=== PATIENT | female | born 1950 | race Caucasian/White ===

== ENCOUNTER 2017-05-16 07:01 | Inpatient (IN) | payer MEDICARE ==
[2017-05-16] VITALS (18 sets, daily range): BP systolic 140–238; BP diastolic 70–113
[~2017-05-16] VITALS: Ht 165.1 cm; Wt 41.8 kg
[~2017-05-16 07:01] MED LIST: LUMIGAN 2.5 ML2.5 ML OPH; METOPROLOL SR50 MG PO; MOTRIN800 MG PO
[2017-05-16] MEDS ORDERED: LATANOPROST2.5 ML OP (07:26)
[2017-05-16] MEDS ORDERED: METOPROLOL TART50 M1 PO (07:26)
[2017-05-16] MEDS ORDERED: IBU-200200 MG PO (07:27)
[2017-05-16 07:41] LABS: BASO # 0.1 10*3/uL (0.0-0.1); BASO % 0.8 % (0.0-1.0); EOS # 0.2 10*3/uL (0.0-0.4); EOS % 2.5 % (1.0-4.0); HEMATOCRIT 49.1 % (37.0-47.0); IG # 0.1 10*3/uL (0.0-0.1); LYMPH # 1.5 10*3/uL (1.3-4.4); LYMPH % 15.7 % (27.0-41.0); MEAN CELL VOLUME 96.5 fl (81.0-99.0); MEAN CORPUSCULAR HGB 33.4 pg (27.0-31.0); MEAN CORPUSCULAR HGB CONC 34.6 g/dl (33.0-37.0); MEAN PLATELET VOLUME 9.6 fl (9.6-12.3); MONO % 10.8 % (3.0-9.0); NEUT # 6.5 10*3/uL (2.3-7.9); NEUT % 69.7 % (47.0-73.0); PLATELET COUNT AUTOMATED 278 10*3/uL (130-400); RED BLOOD COUNT 5.09 10*6/uL (4.10-5.10); RED CELL DISTRI WIDTH 13.5 % (0-14.5); WHITE BLOOD COUNT 9.3 10*3/uL (4.8-10.8)
[2017-05-16 07:50] LABS: PROTHROMBIN TIME 10.9 SECONDS (9.0-12.4)
[2017-05-16 08:03] LABS: ALBUMIN 3.8 gm/dl (3.1-4.5); ALKALINE PHOSPHATASE 100 U/L (45-117); BILIRUBIN, TOTAL 0.4 mg/dl (0.2-1.0); BUN 4 mg/dl (7-24); CARBON DIOXIDE 28 mmol/L (21-32); CHLORIDE 97 mmol/L (98-107); CKMB 1.3 ng/ml (0.5-3.6); CPK 79 U/L (26-192); EST GLOM FILT AFRICAN AMERICAN > 60 ml/min; GLUCOSE 99 mg/dL (65-99); POTASSIUM 4.1 mmol/L (3.5-5.1); SGOT/AST 31 IU/L (3-35); SGPT/ALT 19 U/L (12-78); SODIUM 135 mmol/L (136-145); TOTAL PROTEIN 7.5 gm/dL (6.4-8.2)
[2017-05-16 08:06] LABS: C-REACTIVE PROTEIN < 0.29 MG/DL (0-0.3); TROPONIN I < 0.015 ng/ml (<0.045)
[2017-05-17] VITALS (7 sets, daily range): BP systolic 159–175; BP diastolic 63–92
[2017-05-17 05:50] LABS: BUN 8 mg/dl (7-24); CARBON DIOXIDE 28 mmol/L (21-32); CHLORIDE 100 mmol/L (98-107); CHOLESTEROL 164 mg/dL (<200); EST GLOM FILT AFRICAN AMERICAN > 60 ml/min; FREE T4 0.92 ng/dl (0.76-1.46); GLUCOSE 99 mg/dL (65-99); HDL CHOLESTEROL 94 mg/dl (40-60); LDL CHOLESTEROL 54 mg/dL (9-159); POTASSIUM 3.8 mmol/L (3.5-5.1); SODIUM 135 mmol/L (136-145); TRIGLYCERIDES 81 mg/dl (<150); VLDL CHOLESTEROL 16 mg/dL (6-40)
[2017-05-17 06:22] LABS: BASO # 0.1 10*3/uL (0.0-0.1); BASO % 0.7 % (0.0-1.0); EOS # 0.3 10*3/uL (0.0-0.4); EOS % 2.9 % (1.0-4.0); HEMATOCRIT 47.8 % (37.0-47.0); HEMOGLOBIN 16.2 g/dl (12.0-16.0); LYMPH # 1.5 10*3/uL (1.3-4.4); LYMPH % 16.4 % (27.0-41.0); MEAN CELL VOLUME 96.8 fl (81.0-99.0); MEAN CORPUSCULAR HGB 32.8 pg (27.0-31.0); MEAN CORPUSCULAR HGB CONC 33.9 g/dl (33.0-37.0); MEAN PLATELET VOLUME 10.4 fl (9.6-12.3); MONO # 1.3 10*3/uL (0.1-1.0); MONO % 14.1 % (3.0-9.0); NEUT # 5.8 10*3/uL (2.3-7.9); NEUT % 65.5 % (47.0-73.0); PLATELET COUNT AUTOMATED 261 10*3/uL (130-400); RED BLOOD COUNT 4.94 10*6/uL (4.10-5.10); RED CELL DISTRI WIDTH 13.6 % (0-14.5); WHITE BLOOD COUNT 8.9 10*3/uL (4.8-10.8)
[2017-05-17 06:23] LABS: HEMOGLOBIN A1c 5.5 % (4.8-5.6)
[2017-05-17 07:32] LABS: VITAMIN D, 25-HYDROXY 49.8 ng/mL (30-100)
[2017-05-17] MEDS ORDERED: LISINOPRIL10 M1 PO (13:35)
== END 2017-05-17 16:36 | disposition home or self-care (01) | DRG 305 ==
LOC: ED 07:01 → 4E 09:46 → EDHOLD 09:46 → ICCU 09:46 → 4E 05-17 10:33
PROVIDERS: Emergency Medicine; Student in an Organized Health Care Education/Training Program
DX: I16.1 Hypertensive emergency (principal); D75.1 Secondary polycythemia; Z68.1 Body mass index [BMI] 19.9 or less, adult; H53.2 Diplopia; R63.6 Underweight; I10 Essential (primary) hypertension; H40.9 Unspecified glaucoma; F17.210 Nicotine dependence, cigarettes, uncomplicated; Z88.0 Allergy status to penicillin; Z82.5 Family history of asthma and other chronic lower respiratory diseases; Z82.49 Family history of ischemic heart disease and other diseases of the circulatory system; Z90.710 Acquired absence of both cervix and uterus; Z79.1 Long term (current) use of non-steroidal anti-inflammatories (NSAID); Z79.899 Other long term (current) drug therapy; Z71.6 Tobacco abuse counseling

== ENCOUNTER → 2018-05-02 | Day surgery (SDC) | payer MEDICARE ==
[~2018-05-02] VITALS: Ht 165.1 cm; Wt 44.5 kg
[~2018-05-02] MED LIST changes: +COZAAR25 M1 PO; +IBU-200200 MG PO; +LATANOPROST2.5 ML OP; +LISINOPRIL10 M1 PO; +METOPROLOL TART50 M1 PO; +NORVASC5 MG PO
--- NOTE | ~2018-05-02 | O ---
[place], [place] OPERATIVE NOTE [facility]: [id number] UNIT #: [id number] ROOM: DOCTOR: EDMAR LYNCH MD BIRTHDATE: [birth year] DOS: 05/02/2018 PREOPERATIVE DIAGNOSIS: Cataract, right eye. POSTOPERATIVE DIAGNOSIS: Cataract, right eye. OPERATION: Extracapsular cataract extraction by phacoemulsification with posterior chamber intraocular lens implantation, right eye. ANESTHESIA: Monitored standby. OPERATIVE FINDINGS AND PROCEDURE: 2% Xylocaine topical anesthetic gel was applied to the eye in the preop area. The patient was taken to the operating room and prepped and draped in the standard fashion for sterile intraocular surgery. A time out procedure was performed verifying correct patient, correct site and corrects lens with Luiz Lynch M.D. The operating microscope was swung into position and the lid speculum was inserted. Using a Jonna paracentesis blade, a paracentesis was made through clear cornea. Viscoelastic was used to fill the anterior chamber. Using a metal keratome a 2.4 mm self-sealing clear corneal cataract incision was made temporally at the limbus. Using a pre-bent 25 gauge cystotome needle, a standard continuous curvilinear capsulorrhexis was performed. The anterior capsule was removed with forceps. The lens nucleus was hydrodissected and phacoemulsified in the posterior chamber. Cortical material was removed with the irrigation aspiration hand piece and the posterior capsule was then polished with a curet under irrigation. The posterior chamber and capsular bag were filled with viscoelastic. A posterior chamber intraocular lens manufactured by: [employer], Model #[id number], and 21.5 diopters in strength were then inserted into the posterior chamber and within the capsular bag using the lens cartridge and injector system. Viscoelastic was removed using the irrigation aspiration handpiece. The anterior chamber was filled with balanced salt solution through the paracentesis. Both the paracentesis site and cataract incisions were hydrated with BSS and verified to be water-tight and self-sealing. The incision checked to be water-tight using a Weck-Christina sponge. The integrity of the cataract wound and ocular tension were checked. Lid speculum and drapes were removed. The patient was transferred from the operating room to the recovery room in satisfactory condition. [place], [place] OPERATIVE NOTE NAME: YON POLLARD UNIT #: [id number] ROOM: DOCTOR: EDMAR LYNCH MD BIRTHDATE: [birth year] EDMAR LYNCH MD CM:OPRECORD:OPERATIVE NOTE [id number] EDMAR LYNCH MD 05/02/18 1441 interface
[2018-05-02 12:30] VITALS: BP 132/71
[2018-05-02 13:37] VITALS: BP 141/73
[2018-05-02 13:52] VITALS: BP 119/78
[2018-05-02 14:07] VITALS: BP 143/79
== END | disposition home or self-care (01) ==
LOC: SDC 04-27 14:00
DX: H25.811 Combined forms of age-related cataract, right eye (principal); I10 Essential (primary) hypertension; F17.210 Nicotine dependence, cigarettes, uncomplicated; Z88.8 Allergy status to other drugs, medicaments and biological substances; Z79.899 Other long term (current) drug therapy; Z90.710 Acquired absence of both cervix and uterus; Z88.0 Allergy status to penicillin

== ENCOUNTER → 2019-10-11 | Outpatient (CLI) | payer MEDICARE | END | disposition home or self-care (01) | LOC: US 07:28 | DX: R10.84 Generalized abdominal pain (principal); R10.2 Pelvic and perineal pain ==

== ENCOUNTER → 2021-02-24 | Day surgery (SDC) | payer MEDICARE, OTHER ==
[~2021-02-24] VITALS: Ht 165.1 cm; Wt 45.4 kg
[2021-02-24 09:47] VITALS: BP 162/76
[2021-02-24 11:00] VITALS: BP 155/73
[2021-02-24 11:13] VITALS: BP 159/76
[2021-02-24 11:30] VITALS: BP 161/70
== END ==
LOC: SDC 02-19 14:00
PROVIDERS: ATTEND Ophthalmology
DX: H25.12 Age-related nuclear cataract, left eye (principal); I10 Essential (primary) hypertension; J45.909 Unspecified asthma, uncomplicated; F17.210 Nicotine dependence, cigarettes, uncomplicated; Z88.0 Allergy status to penicillin

== ENCOUNTER 2022-01-19 12:12 | Emergency (ER) | payer MEDICARE, OTHER ==
[~2022-01-19] VITALS: Ht 165.1 cm; Wt 38.6 kg
[2022-01-19 12:58] LABS: HEMATOCRIT 53.7 % (37.0-47.0); MEAN CELL VOLUME 95.6 fl (81.0-99.0); MEAN CORPUSCULAR HGB 33.3 pg (27.0-31.0); MEAN CORPUSCULAR HGB CONC 34.8 g/dl (33.0-37.0); MEAN PLATELET VOLUME 8.9 fl (9.6-12.3); PLATELET COUNT AUTOMATED 296 10*3/uL (130-400); RED BLOOD COUNT 5.62 10*6/uL (4.10-5.10); RED CELL DISTRI WIDTH 13.2 % (0-14.5); WHITE BLOOD COUNT 11.8 10*3/uL (4.8-10.8)
[2022-01-19 13:01] LABS: MANUAL DIFF REFLEX YES
[2022-01-19 13:10] LABS: ACT PARTIAL THROMBO TIME 28.2 SECONDS (20.0-32.1)
[2022-01-19 13:15] LABS: ALKALINE PHOSPHATASE 141 U/L (45-117); BUN 3 mg/dl (7-24); CHLORIDE 92 mmol/L (98-107); CREATININE 0.66 mg/dL (0.55-1.02); SGOT/AST 21 IU/L (3-35); SGPT/ALT 24 U/L (12-78); SODIUM 129 mmol/L (136-145); TOTAL PROTEIN 8.5 gm/dL (6.4-8.2)
[2022-01-19 13:18] LABS: ATYPICAL LYMPHS 1 % (0-0); BASOPHILS 2 % (0-1); TOTAL CELLS COUNTED 100 #CELLS
[2022-01-19 13:19] LABS: PLATELET SUFFICIENCY NORMAL (NORMAL); POLYCHROMASIA SLIGHT
[2022-01-19] MEDS ORDERED: VITAMIN D325 MCG PO (13:56)
[2022-01-19] MEDS ORDERED: CALCIUM CARBON600 M4 PO (13:56)
[2022-01-19] MEDS ORDERED: ALENDRONATE SOD70 M1 PO (13:56)
== END 2022-01-19 21:04 | disposition short-term general hospital (02) ==
LOC: ED 12:12
PROVIDERS: Emergency Medicine
DX: I70.201 Unspecified atherosclerosis of native arteries of extremities, right leg (principal); Z88.0 Allergy status to penicillin; Z79.899 Other long term (current) drug therapy; Z90.710 Acquired absence of both cervix and uterus; Z87.891 Personal history of nicotine dependence

== ENCOUNTER → 2022-07-28 | Outpatient (CLI) | payer MEDICARE, OTHER ==
[~2022-07-28] MED LIST changes: +ALENDRONATE SOD70 M1 PO; +CALCIUM CARBON600 M4 PO; +VITAMIN D325 MCG PO
== END | disposition home or self-care (01) ==
LOC: RESCLI 00:07
PROVIDERS: ATTEND Family Medicine
DX: J44.9 Chronic obstructive pulmonary disease, unspecified (principal); Z88.0 Allergy status to penicillin; I10 Essential (primary) hypertension; Z90.710 Acquired absence of both cervix and uterus; Z79.899 Other long term (current) drug therapy; Z79.82 Long term (current) use of aspirin

== ENCOUNTER → 2023-01-23 | Outpatient (CLI) | payer MEDICARE, OTHER | END | disposition home or self-care (01) | LOC: RESCLI 02:32 | PROVIDERS: ATTEND Internal Medicine | DX: I73.9 Peripheral vascular disease, unspecified (principal); E63.9 Nutritional deficiency, unspecified; M81.0 Age-related osteoporosis without current pathological fracture; J44.9 Chronic obstructive pulmonary disease, unspecified; I10 Essential (primary) hypertension; F17.210 Nicotine dependence, cigarettes, uncomplicated; F10.90 Alcohol use, unspecified, uncomplicated; H40.9 Unspecified glaucoma; Z82.49 Family history of ischemic heart disease and other diseases of the circulatory system; Z88.0 Allergy status to penicillin; Z79.82 Long term (current) use of aspirin; Z79.899 Other long term (current) drug therapy ==

== ENCOUNTER → 2024-01-23 | Outpatient (CLI) | payer MEDICARE, OTHER | END | disposition home or self-care (01) | LOC: RESCLI 02:35 | PROVIDERS: ATTEND Internal Medicine | DX: I10 Essential (primary) hypertension (principal); J44.9 Chronic obstructive pulmonary disease, unspecified; F17.210 Nicotine dependence, cigarettes, uncomplicated; F10.90 Alcohol use, unspecified, uncomplicated; E63.9 Nutritional deficiency, unspecified; H40.9 Unspecified glaucoma; I73.9 Peripheral vascular disease, unspecified; Z79.82 Long term (current) use of aspirin; M81.0 Age-related osteoporosis without current pathological fracture; Z79.899 Other long term (current) drug therapy; Z98.890 Other specified postprocedural states; Z82.49 Family history of ischemic heart disease and other diseases of the circulatory system; Z88.8 Allergy status to other drugs, medicaments and biological substances ==

== ENCOUNTER → 2025-01-06 | Outpatient (CLI) | payer MEDICARE, OTHER | END | disposition home or self-care (01) | LOC: RAD 13:22 → MAMMO 14:00 | PROVIDERS: ATTEND Family Medicine | DX: Z12.31 Encounter for screening mammogram for malignant neoplasm of breast (principal); Z13.820 Encounter for screening for osteoporosis; R92.333 Mammographic heterogeneous density, bilateral breasts; N64.89 Other specified disorders of breast; M81.0 Age-related osteoporosis without current pathological fracture ==

== ENCOUNTER → 2025-01-15 | Outpatient (CLI) | payer MEDICARE, OTHER | END | disposition home or self-care (01) | LOC: US 02:31 | PROVIDERS: ATTEND Family Medicine | DX: R92.30 Dense breasts, unspecified (principal); R92.8 Other abnormal and inconclusive findings on diagnostic imaging of breast ==